=== PATIENT | female | born 1950 | race Caucasian/White ===

== ENCOUNTER → 2016-12-02 | Outpatient (CLI) | payer OTHER | LOC: BHFA 11:15 | PROVIDERS: ATTEND Internal Medicine Cardiovascular Disease | DX: I34.0 Nonrheumatic mitral (valve) insufficiency (principal); I48.0 Paroxysmal atrial fibrillation ==

== ENCOUNTER → 2018-11-11 | Outpatient (CLI) | payer OTHER | LOC: BHCLAF 09:15 ==